=== PATIENT | male | born 1955 | race Caucasian/White ===

== ENCOUNTER 2022-03-08 12:00 | Day surgery (SDC) | payer BC, SELFPAY ==
[2022-03-01 11:02] VITALS: BMI 30.7
[2022-03-01 11:28] VITALS: BMI 30.7
--- NOTE | 2022-03-07 12:05 | HO.ANESPROP2 ---
Documented by User: Suzi Srinivasan NP 03/07/22 12:06 HPI - Anesthesia Eval Consult details Narrative: 66yo M for Bilateral and Lateral Eye Muscle Rectus Recession,Right Inferior rectus recession [facility]CP [facility] Past Medical History Medical History (Updated 03/01/22 @ 11:27 by Mary Isbell RN) Bilateral hearing loss Elevated cholesterol Leiomyosarcoma Psoriasis Surgical History Surgical History (Updated 03/01/22 @ 11:27 by Mary Isbell RN) H/O colonoscopy History of tonsillectomy and adenoidectomy Hx of appendectomy Hx of cataract surgery Hx of sinus surgery Social History Social History (Updated 03/01/22 @ 11:01 by Mary Isbell RN) Patient Tobacco Use Status: Former Tobacco user Quit Date: age 26 Tobacco use type: Cigarette Years Smoked: 4 Use of substances other than those prescribed or required for medical reasons: Yes Substance Use Frequency: Occasionally Have you been hit, kicked, punched, or otherwise hurt by someone within the past year? If so, by whom?: No Are you DNR?: Yes Advance Directives Information Provided: Yes (as above noted-patient to bring copies DOS) Advance Directives on File: No Recently lost weight without trying: No Eating poorly because of decreased appetite: No Nutrition Risks: No Nutritional Risk Poor oral hygiene: No (upper front partial flipper -2 front teeth) Meds Allergies Allergy/AdvReac Type Severity Reaction Status Date / Time No Known Allergies Allergy Verified 03/01/22 11:04 Home Medications Medication Instructions Recorded Confirmed Last Taken Type cholecalciferol (vitamin D3) 50 50 mcg PO DAILY 03/01/22 03/01/22 Unknown History mcg (2,000 unit) capsule (Vitamin D3) fluticasone propionate 50 1 spray intranasal BID PRN sinus 03/01/22 03/01/22 Unknown History mcg/actuation nasal congestion spray,suspension vitamin K2 40 mcg tablet 40 mcg PO DAILY 03/01/22 03/01/22 Unknown History Exam Exam Date and Time: March 07, 2022 1205 Height,Weight and Vital Signs: Height 5 ft 11 in Weight 99.79 kg Assessment and Plan Assessment Anesthesia Assessment: Chart Reviewed Documented by User: Viet López MD 03/08/22 16:21 [facility] Past Medical History Medical History (Updated 03/01/22 @ 11:27 by Mary Isbell RN) Bilateral hearing loss Elevated cholesterol Leiomyosarcoma Psoriasis Family History Family history of problems with anesthesia: No Surgical History Surgical History (Updated 03/01/22 @ 11:27 by Mary Isbell RN) H/O colonoscopy History of tonsillectomy and adenoidectomy Hx of appendectomy Hx of cataract surgery Hx of sinus surgery History of Problems with Anesthesia: No Social History Social History (Updated 03/01/22 @ 11:01 by Mary Isbell RN) Patient Tobacco Use Status: Former Tobacco user Quit Date: age 26 Tobacco use type: Cigarette Years Smoked: 4 Use of substances other than those prescribed or required for medical reasons: Yes Substance Use Frequency: Occasionally Have you been hit, kicked, punched, or otherwise hurt by someone within the past year? If so, by whom?: No Are you DNR?: Yes Advance Directives Information Provided: Yes (as above noted-patient to bring copies DOS) Advance Directives on File: No Recently lost weight without trying: No Eating poorly because of decreased appetite: No Nutrition Risks: No Nutritional Risk Poor oral hygiene: No (upper front partial flipper -2 front teeth) Meds Allergies Allergy/AdvReac Type Severity Reaction Status Date / Time No Known Allergies Allergy Verified 03/01/22 11:04 Home Medications Medication Instructions Recorded Confirmed Last Taken Type cholecalciferol (vitamin D3) 50 50 mcg PO DAILY 03/01/22 03/01/22 Unknown History mcg (2,000 unit) capsule (Vitamin D3) fluticasone propionate 50 1 spray intranasal BID PRN sinus 03/01/22 03/01/22 Unknown History mcg/actuation nasal congestion spray,suspension vitamin K2 40 mcg tablet 40 mcg PO DAILY 03/01/22 03/01/22 Unknown History Exam Airway Mallampati Class: II TM Dist: >3cm Neck ROM: Full Partial: Upper Loose/Missing/Broken Teeth: No Heart: RRR Lungs: CTA Assessment and Plan Final Anesthetic Review Family History of Problems with Anesthesia: No History of Problems with Anesthesia: No NPO: Yes ASA Class: II Final Preanesthetic Review: No Changes in Pt Med Stat, Meds/Allgs Chart Reviewed, Consent Obtained/Reviewed and Anes Risks/Benef Reviewed Patient Risk: Low Procedure Risk: Low Anesthetic Plan Anesthetic Plan: GA Disposition: Standard PACU
[2022-03-08] VITALS (9 sets, daily range): BP systolic 127–163; BP diastolic 68–92; PULSE 78–104; RESP 16–17; TEMP 36.3–36.6; O2SAT 92–97
[2022-03-08] MEDS: Lactated Ringers 1,000 ML 100 ML IVCONT (14:39)
--- NOTE | 2022-03-08 17:56 | HO.OPHTHAL ---
Ophthalmology Operative Note Date of Service: 03/08/22 Narrative: Diagnosis 1. Exotropia 2. Left hypertropia. Procedures 1. Bilateral lateral rectus recessions of 5 mm 2. Resection of left inferior rectus [address] Fairchild. Anesthesia general. Complications none. The patient was brought to the operating room placed under general anesthesia. The patient's eyes were prepped and draped in the usual sterile ophthalmic fashion. A lid speculum was placed in the right eye and incisions made at bare sclera in the inferotemporal fornix. The lateral rectus muscle was hooked and secured with a double-armed Vicryl suture. The muscle was then disinserted from the globe and reattached to a position 5 mm behind the original insertion. Conjunctiva was closed with interrupted Vicryl sutures. The lid speculum was moved to the left eye and an identical procedure was performed on the left lateral rectus muscle. The inferior rectus muscle was then hooked and grasped near its insertion with a muscle clamp. A 4 mm resection was marked off with cautery and the resection points secured with a double-armed Vicryl suture. The distal muscle was resected and the resection point drawn forward to the original insertion with the Vicryl sutures. Conjunctiva was closed with interrupted Vicryl sutures. The patient was then awoken from general anesthesia and discharged to postoperative recovery in good condition.
== END 2022-03-08 19:39 | disposition home or self-care (01) ==
LOC: HO.SSS 12:00
PROVIDERS: PCP Internal Medicine; Visit Provider Ophthalmology
PROC: (CPT 67311; principal; 2022-03-08 14:20)
DX: H49.20 Sixth [abducent] nerve palsy, unspecified eye (principal); H53.2 Diplopia; H50.10 Unspecified exotropia; H50.22 Vertical strabismus, left eye; H53.002 Unspecified amblyopia, left eye; H91.93 Unspecified hearing loss, bilateral; E78.5 Hyperlipidemia, unspecified; E55.9 Vitamin D deficiency, unspecified; E66.3 Overweight; Z68.30 Body mass index [BMI] 30.0-30.9, adult; L40.50 Arthropathic psoriasis, unspecified; Z79.899 Other long term (current) drug therapy; Z87.891 Personal history of nicotine dependence
CPT/HCPCS: 67311; 67314; J1100; J2405; J3010